=== PATIENT | female | born 1990 | race African-American/Black ===

== ENCOUNTER 2019-12-17 09:08 | Emergency (ER) | payer MEDICAID ==
[~2019-12-17] VITALS: Ht 154.9 cm; Wt 90.0 kg
[2019-12-17] MEDS ORDERED: KETOROLAC 30MG/ML VIAL IV STA (10:17)
[2019-12-17] MEDS ORDERED: SODIUM CHLORIDE 0.9% 1,000 ML IV ONE (10:17)
[2019-12-17] MEDS ORDERED: ONDANSETRON HCL 4MG/2ML INJ IV ONE (10:30)
[2019-12-17 10:49] LABS: HEMATOCRIT. 36.9 % (36.0-48.0); HEMOGLOBIN. 12.8 g/dL (12.0-16.0); MEAN CORPUSCULAR HEMOGLOBIN 32.7 pg (28.0-32.0); MEAN CORPUSCULAR VOLUME 94.5 fL (81.0-99.0); MEAN PLATELET VOLUME 9.2 fl (7.4-10.4); PLATELET 286 x1000/uL (130-400); RED CELL DISTRIBUTION WIDTH 13.3 % (11.6-14.6)
[2019-12-17 10:58] LABS: CHLORIDE 107 mEq/L (98-107)
[2019-12-17 11:01] LABS: HCG SCREEN NEGATIVE
[2019-12-17 11:27] LABS: PLATELET ESTIMATE NORMAL
[2019-12-17] MEDS ORDERED: POTASSIUM CHLORIDE 20MEQ TABLET SR PO ONE (12:45)
[2019-12-17] MEDS ORDERED: ONDANSETRON 4MG ODT PO ONE (12:45)
[2019-12-17] MEDS ORDERED: HYDROCODONE/ACETAMINOPHEN 5/325MG TABLET PO ONE (12:45)
[2019-12-17 13:35] VITALS: BP 126/92
[2019-12-17 13:59] LABS: CLARITY URINE CLOUDY (CLEAR); COLOR URINE YELLOW (YELLOW); KETONES URINE 3+ (NEGATIVE); LEUKOCYTE ESTERASE URINE NEGATIVE (NEGATIVE); NITRITE URINE NEGATIVE (NEGATIVE); OCCULT BLOOD URINE NEGATIVE (NEGATIVE); PH URINE 6.5 (4.5-8.0); PROTEIN URINE NEGATIVE (NEGATIVE); SPECIFIC GRAVITY URINE 1.027 (1.005-1.030); UROBILINOGEN URINE 0.2 E.U./dL (0.2-1.0)
== END 2019-12-17 15:08 | disposition home or self-care (01) ==
LOC: ER 09:08
DX: K80.20 Calculus of gallbladder without cholecystitis without obstruction (principal); Z88.5 Allergy status to narcotic agent
CPT/HCPCS: 36415; 76700; 80053; 81003; 81025; 83690; 84703; 85025; 96361; 96374; 96375; 99284; J1885; J2405; J7030; Q0162

== ENCOUNTER 2020-04-16 06:02 | Emergency (ER) | payer MEDICAID ==
[~2020-04-16] VITALS: Ht 167.6 cm; Wt 82.0 kg
[2020-04-16] MEDS ORDERED: MAGNESIUM/ALUMINUM HYDROXIDE/SIMETHICONE 30ML UDC PO STA (06:35)
[2020-04-16] MEDS ORDERED: KETOROLAC 30MG/ML VIAL IV STA (06:35)
[2020-04-16] MEDS ORDERED: SODIUM CHLORIDE 0.9% 1,000 ML IV ONE (06:35)
[2020-04-16] MEDS ORDERED: ONDANSETRON HCL 4MG/2ML INJ IV STA (06:35)
[2020-04-16 07:26] LABS: BASOPHILS % 0.5 % (0.0-2.0); EOSINOPHILS % 0.1 % (0.0-5.0); HEMATOCRIT. 37.8 % (36.0-48.0); LYMPHOCYTES % 15.2 % (20.0-50.0); MEAN CORPUSCULAR HEMOGLOBIN 32.6 pg (28.0-32.0); MEAN CORPUSCULAR VOLUME 94.9 fL (81.0-99.0); MEAN PLATELET VOLUME 8.5 fl (7.4-10.4); MONOCYTES % 3.5 % (2.0-8.0); NEUTROPHILS % 80.7 % (40.0-76.0); PLATELET 305 x1000/uL (130-400); RED BLOOD CELL COUNT 3.98 mill/uL (4.2-5.4); RED CELL DISTRIBUTION WIDTH 13.1 % (11.6-14.6)
[2020-04-16 07:32] LABS: CHLORIDE 109 mEq/L (98-107)
[2020-04-16 07:34] LABS: INR 1.1; PROTHROMBIN TIME 11.1 sec (9.6-11.0)
[2020-04-16 09:00] VITALS: BP 132/87
== END 2020-04-16 09:29 | disposition home or self-care (01) ==
LOC: ER 06:02
DX: K80.50 Calculus of bile duct without cholangitis or cholecystitis without obstruction (principal); Z88.0 Allergy status to penicillin
CPT/HCPCS: 36415; 76705; 80053; 83690; 85025; 85610; 96361; 96374; 96375; 99284; J1885; J2405; J7030

== ENCOUNTER 2021-01-15 16:04 | Observation (INO) | payer MEDICAID ==
[~2021-01-15] VITALS: Ht 156.2 cm; Wt 97.5 kg
[2021-01-15] MEDS ORDERED: PNV1TABL76 PO (16:59)
== END 2021-01-15 20:15 | disposition home or self-care (01) ==
LOC: ER 16:04 → 8 EST A/PP 16:19
PROVIDERS: ADMIT Obstetrics & Gynecology; ATTEND Obstetrics & Gynecology
DX: O26.892 Other specified pregnancy related conditions, second trimester (principal); R10.9 Unspecified abdominal pain; Z3A.27 27 weeks gestation of pregnancy
CPT/HCPCS: 59025; 76805; G0378